=== PATIENT | female | born 1990 | race Caucasian/White ===

== ENCOUNTER 2018-10-19 00:12 | Inpatient (IN) | payer BC, OTHER ==
[2018-10-19] MEDS ORDERED: Misoprostol 50 MCG (1/2 of 100 MCG) Tab VAG ONE (01:24)
[2018-10-19] MEDS: Misoprostol 25 MCG (1/4 of 100 MCG) Tab VAG PRN ×2 (01:30→05:59)
[2018-10-19] MEDS ORDERED: Misoprostol 400 MCG (4 X 100 MCG TAB) RECTAL PRN (01:33)
[2018-10-19] MEDS ORDERED: Lidocaine 1% 30 ML SDV INJECT PRN (01:33)
[2018-10-19] MEDS ORDERED: Tranexamic Acid 1,000 MG in Sodium Chloride 0.9% 100 ML IV PRN (01:33)
[2018-10-19] MEDS ORDERED: Sodium Chloride 0.9% 10 ML Syringe FLUSH PRN ×2 (01:33→14:10)
[2018-10-19] MEDS ORDERED: Ondansetron 4 MG/2 ML SDV IV PRN (01:33)
[2018-10-19] MEDS ORDERED: Lactated Ringers 1,000 ML IV ONE (01:33)
[2018-10-19] MEDS ORDERED: Carboprost Tromethamine 250 MCG/1 ML Amp IM PRN (01:33)
[2018-10-19] MEDS ORDERED: Acetaminophen 325 MG Tab PO PRN ×2 (01:33→01:40)
[2018-10-19] MEDS ORDERED: Methylergonovine 0.2 MG/1 ML Amp IM PRN (01:33)
[2018-10-19] MEDS ORDERED: Oxytocin/Normal Saline 30 UNIT/500 ML BAG IV SCH ×2 (01:45)
[2018-10-19] MEDS ORDERED: Nalbuphine 10 MG/1 ML Vial IM PRN (01:48)
[2018-10-19] MEDS ORDERED: fentaNYL 100 MCG/2 ML SDV IVPUSH PRN (01:48)
[2018-10-19] MEDS: Lactated Ringers 1,000 ML IV SCH ×3 (06:51→17:29)
--- NOTE | 2018-10-19 10:57 | PCM.SN ---
- Free Text/Narrative Note: OB History and Physical 10/19/18 Chief Complaint: induction of labor HPI: Flor is a 28 year old G1 at 41w0d EGA who presents for induction of labor due to post dates. She has been doing well. She reports active movement. No complications this . ROS: Negative for headache, nausea, vomiting, diarrhea, fever, chills, abdominal pain, hematuria, dysuria, contractions, loss of fluid or bleeding per vagina. Medical Hx: none Surgical Hx: wisdom teeth extraction Family Hx: negative for bleeding or clotting disorder, genetic defects or mental disabilities. OB Hx: G1 Labs: OB Panel: Blood Type: A Positive Rubella: Immune HBSAg: Nonreactive GBS: Negative Gonorrhea/Chlamydia: Not Detected HIV: Nonreactive RPR: Nonreactive Physical Exam: Vitals: BP 109/75, HR 88, RR 18, O2 sat 98% on RA, Temp 99.1 Gen: No distress CV: Well-perfused, 2+ distal pulses, regular rate and rhythm, no audible murmurs Resp: Non-labored, symmetrical chest expansion, clear to auscultation Abd: gravid, soft, non tender Ext: Moves all extremities, no edema. SVE: 1/50/-1 FHT: 140, moderate variability, no decelerations appreciated, accelerations noted CTX: Q 3-5 mins, not feeling them Assessment: Flor is a 28 year old G1 at 41w0d EGA who presents for induction of labor due to post dates. Cat I Strip. Plan: - Will start induction with cytotec - Reviewed pain medication options with the patient - Routine cares - Will follow closely
[2018-10-19] MEDS ORDERED: Oxytocin/Normal Saline 60 UNIT/1,000 ML BAG ONE (14:09)
[2018-10-19] MEDS ORDERED: Lactated Ringers 1,000 ML IV SCH ×2 (14:15)
[2018-10-19] MEDS ORDERED: ceFAZolin 2 GM in Premix Bag 1 BAG IV ONE (14:15)
[2018-10-19] MEDS ORDERED: Citric Acid/Sodium Citrate Solution 30 ML Cup PO ONE (14:15)
--- NOTE | 2018-10-19 14:25 | PCM.SN ---
- Free Text/Narrative Note: History and Physical Update S: Patient was having a lot of back pain/labor with her contractions while on the Cytotec and made progress to 2.5cm dilated. Low dose pitocin was started to continue induction. FHT began having late decelerations so the pitocin was stopped, oxygen placed and IV fluids increased. She was dilated to 3cm. The decelerations resolved, however, the variability was minimal with occasional short periods of moderate. No accelerations were noted. A BPP was ordered was 4/ 10, 2 for movement and 2 for MAX. A discussion was had with the patient and it was decided to proceed with section to deliver the baby. O: FHT: 125, min-mod variability, no accelerations, no decelerations Contractions: 2-4 minutes BPP: 4/10 A: Flor is a 28 year old at 41w0d EGA who presented for induction of labor for post dates who is proceeding with a section due to 4/10 BPP that was performed for a nonreactive NST. P: - Proceed with primary section for non reassuring status - Routine cares - 2g Ancef - Dr. Gonzales called for in OR pediatric care if needed - Dr. Marcial notified to assist
[2018-10-19] MEDS ORDERED: Acetaminophen/oxyCODONE 325-5 MG Tab PO PRN ×2 (15:55)
[2018-10-19] MEDS ORDERED: diphenhydrAMINE 50 MG/ML SDV IVPUSH PRN (15:55)
[2018-10-19] MEDS ORDERED: Naloxone 2 MG/2 ML Syringe IVPUSH PRN (15:55)
[2018-10-19] MEDS ORDERED: Docusate Sodium 100 MG Cap PO PRN (15:55)
[2018-10-19] MEDS ORDERED: ePHEDrine 50 MG/ML SDV IVPUSH PRN (15:55)
--- NOTE | 2018-10-19 16:41 | PCM.PRNOTE ---
- Free Text/Narrative Note: OPERATIVE REPORT Date: 10/19/18 Procedure: Repeat low transverse section Start: 1503 Stop: 1538 Surgeon: Luz Yoon MD Dj Instructor: Dr. Marcial Pre-Operative Diagnosis: 28 year old at 41w0d EGA. Non reassuring status Post-Operative Diagnosis: same as above s/p section Anesthesia: Spinal Specimens: left tubal cyst Complications: none apparent Drains: sanders catheter with clear urine output EBL: 500 mL IVF: see [employer] documentation Findings: intrauterine , left tubal cyst, baby girl with apgars 3 and 9. Indication for Procedure: non reassuring status Procedure in Detail: The patient was brought to the operating room where spinal anesthesia was administered. She was then prepped and draped in routine fashion in dorsal supine position with a leftward tilt. Sanders catheter and SCDs were placed. Incision was made through the skin and carried sharply to the level of the fascia, which was then incised transversely in the midline. This incision was then carried bilaterally with scissors. The fascia was tented up with Steph clamps and dissected off the underlying rectus musculature with sharp and blunt technique in both the superior and inferior direction. The rectus musculature was then in the midline and the peritoneum was entered in the midline with care being taken to avoid any underlying bowel and/or bladder tissue. The operative opening was then extended with manual traction. The peritoneal reflection was identified and the bladder was dissected off the lower uterine segment with sharp and blunt technique. The lower uterine segment was incised transversely in the midline to the level of the amniotic sac then bluntly widened. Copious clear fluid was noted. The infants head was elevated out of the maternal pelvis and was delivered through the incision. The remainder of the was then delivered. Bulb suctioning was performed on the operative field. The cord was clamped and cut in standard fashion and then the was handed over to the awaiting nursery staff. The placenta was delivered via gentle traction on umbilical cord with concomitant uterine massage followed by manual extraction. The uterus was cleared of remaining products of conception with a dry lap. The uterine incision was closed with a interlocking layer of 0-Vicryl followed by an imbricating layer of the same material. The incision was inspected and complete hemostasis was achieved. The abdomen was then cleared of clot and debris. Hemostasis of all incised surfaces was confirmed. A left tubal cyst was noted during the procedure and removed by Dr. Marcial and sent for pathology. A cross stitch was placed in the peritoneum. The fascia was then closed with 0- PDS. It was ensured that no underlying abdominal contents were closed in the incision. The skin closed with 4-0 Monocryl on a Jarrell needle. The patient did receive Ancef preoperatively. Sponge and instrument counts were reported as correct times two. Patient tolerated procedure well and was taken to PACU in stable condition.
[2018-10-19] MEDS ORDERED: Promethazine 25 MG/ML SDV IM PRN (17:59)
[2018-10-19] MEDS: Simethicone 80 MG Tab.Chew PO SCH ×2 (18:51→22:03)
[2018-10-19] MEDS: Ketorolac 30 MG/ML SDV IVPUSH SCH (22:03)
[2018-10-20] MEDS: Lactated Ringers 1,000 ML IV SCH (01:48)
[2018-10-20] MEDS: Ketorolac 30 MG/ML SDV IVPUSH SCH ×2 (03:59→09:45)
[2018-10-20] MEDS ORDERED: Prenatal Multivitamin with Calcium/Folic Acid/Iron Tab PO SCH (09:00)
[2018-10-20] MEDS: Simethicone 80 MG Tab.Chew PO SCH ×2 (09:43→13:06)
--- NOTE | 2018-10-20 10:40 | PCM.PNPP ---
- General Info Date of Service: 10/20/18 (POD # 1 S/P Primary LTC/S) Functional Status: Reports: Pain Controlled, Tolerating Diet, Ambulating, Urinating - Review of Systems General: Reports: No Symptoms HEENT: Reports: No Symptoms Pulmonary: Reports: No Symptoms Cardiovascular: Reports: No Symptoms Gastrointestinal: Reports: No Symptoms Genitourinary: Reports: No Symptoms Musculoskeletal: Reports: No Symptoms Skin: Reports: No Symptoms Neurological: Reports: No Symptoms Psychiatric: Reports: No Symptoms - General Info Date of Service: 10/20/18 (POD/PPD # 1 S/P LTC/S) - Patient Data Vital Signs - Most Recent: Last Vital Signs Temp 97.8 F 10/20/18 08:00 Pulse 65 10/20/18 08:00 Resp 16 10/20/18 08:00 BP 105/63 10/20/18 08:00 Pulse Ox 98 10/20/18 08:00 Weight - Most Recent: 157 lb I&O - Last 24 Hours: Intake & Output 10/19/18 10/20/18 10/20/18 22:59 06:59 14:59 Intake Total 4680 Output Total 1800 950 Balance 2880 -950 Lab Results - Last 24 Hours: Laboratory Results - last 24 hr 10/19/18 10/20/18 Range/Units 00:45 06:00 WBC 14.5 H (5.0-10.0) 10^3/uL RBC 3.63 L (4.2-5.4) 10^6/uL Hgb 11.3 L (12.0-16.0) g/dL Hct 34.2 L (37.0-47.0) % MCV 94.2 (80-100) fL MCH 31.1 (27.0-34.0) pg MCHC 33.0 (33.0-35.0) g/dL Plt Count 224 (150-450) 10^3/uL Blood Type A POSITIVE Gel Antibody Screen Negative Med Orders - Current: Current Medications Acetaminophen (Tylenol) 650 mg PO Q4H PRN PRN Reason: Pain (Mild 1-3) and fever Carboprost Tromethamine (Hemabate Ds) 250 mcg IM ASDIRECTED PRN PRN Reason: HEMORRHAGE Diphenhydramine HCl (Benadryl) 25 mg IVPUSH Q6HR PRN PRN Reason: Itching or Nausea Docusate Sodium (Colace) 100 mg PO Q12HR PRN PRN Reason: Constipation Last Admin: 10/20/18 09:44 Dose: 100 mg Ephedrine Sulfate (Ephedrine Sulfate) 5 mg IVPUSH SEECOMMENT PRN PRN Reason: Other Oxytocin/Sodium Chloride (Pitocin In Ns 30 Unit/500 Ml) 30 unit in 500 mls @ 2 mls/hr IV TITRATE [facility]; Protocol Last Titration: 10/19/18 17:45 Dose: 0 munits/min, 0 mls/hr Tranexamic Acid 1,000 mg/ (Sodium Chloride) 110 mls @ 660 mls/hr IV ONETIME PRN PRN Reason: Bleeding Lactated Ringer's (Ringers, Lactated) 1,000 mls @ 125 mls/hr IV ASDIRECTED RAMIREZ Last Admin: 10/20/18 01:48 Dose: 125 mls/hr Ibuprofen (Motrin) 800 mg PO Q8H PRN PRN Reason: mild pain or fever Methylergonovine Maleate (Methergine) 0.2 mg IM ASDIRECTED PRN PRN Reason: Hemorrhage Misoprostol (Cytotec) 800 mcg RECTAL ASDIRECTED PRN PRN Reason: Hemorrhage Naloxone HCl (Narcan) 0.1 mg IVPUSH SEECOMMENT PRN PRN Reason: Respiratory Depression Ondansetron HCl (Zofran) 4 mg IV Q4H PRN PRN Reason: Nausea/Vomiting Oxycodone/Acetaminophen (Percocet 325-5 Mg) 1 tab PO Q4HR PRN PRN Reason: Pain (moderate 4-6) Oxycodone/Acetaminophen (Percocet 325-5 Mg) 2 tab PO Q4HR PRN PRN Reason: Pain (severe 7-10) Prenat Multivit/[place]/Iron/Folic Ac ( Plus Iron) 1 each PO DAILY [facility] Last Admin: 10/20/18 09:44 Dose: 1 each Promethazine HCl (Phenergan) 25 mg IM ONETIME PRN PRN Reason: Vomiting Last Admin: 10/19/18 18:15 Dose: 25 mg Simethicone (Simethicone) 160 mg PO QID [facility] Last Admin: 10/20/18 09:43 Dose: 160 mg Sodium Chloride (Saline Flush) 10 ml FLUSH ASDIRECTED PRN PRN Reason: Keep Vein Open Discontinued Medications Acetaminophen (Tylenol) 650 mg PO Q4H PRN PRN Reason: Pain/Fever Citric Acid/Sodium Citrate (Bicitra Solution) 30 ml PO ONETIME ONE Stop: 10/19/18 14:16 Last Admin: 10/19/18 14:35 Dose: 30 ml Fentanyl (Sublimaze) 50 mcg IVPUSH Q6H PRN PRN Reason: Pain Lactated Ringer's (Ringers, Lactated) 1,000 mls @ 999 mls/hr IV .BOLUS ONE Stop: 10/19/18 02:33 Last Admin: 10/19/18 16:03 Dose: Not Given Lactated Ringer's (Ringers, Lactated) 1,000 mls @ 125 mls/hr IV ASDIRECTED RAMIREZ Last Admin: 10/19/18 12:48 Dose: 125 mls/hr Oxytocin/Sodium Chloride (Pitocin In Ns 30 Unit/500 Ml) 30 unit in 500 mls @ 2 mls/hr IV TITRATE RAMIREZ; Protocol Last Titration: 10/19/18 11:18 Dose: 0 munits/min, 0 mls/hr Oxytocin/Sodium Chloride (Pitocin In Ns 30 Unit/500 Ml) Confirm Administered Dose 60 unit in 1,000 mls @ as directed .ROUTE .STK-MED ONE Stop: 10/19/18 14:10 Cefazolin Sodium/Dextrose 2 gm (/ Premix) 50 mls @ 100 mls/hr IV ONETIME ONE Stop: 10/19/18 14:44 Last Admin: 10/19/18 14:17 Dose: 100 mls/hr Lactated Ringer's (Ringers, Lactated) 1,000 mls @ 125 mls/hr IV ASDIRECTED RAMIREZ Lactated Ringer's (Ringers, Lactated) 1,000 mls @ 500 mls/hr IV .BOLUS RAMIREZ Ketorolac Tromethamine (Toradol) 15 mg IVPUSH Q6H RAMIREZ Stop: 10/20/18 10:01 Last Admin: 10/20/18 09:45 Dose: 15 mg Lidocaine HCl (Xylocaine-Mpf 1%) 30 ml INJECT ASDIRECTED PRN PRN Reason: Perineal Repair Misoprostol (Cytotec) 25 mcg VAG ONETIME ONE Stop: 10/19/18 01:25 Last Admin: 10/19/18 03:56 Dose: Not Given Misoprostol (Cytotec) 25 mcg VAG Q4H PRN PRN Reason: cervical ripening Last Admin: 10/19/18 05:59 Dose: 25 mcg Nalbuphine HCl (Nubain) 20 mg IM Q6H PRN PRN Reason: Pain Last Admin: 10/19/18 11:07 Dose: 20 mg Sodium Chloride (Saline Flush) 10 ml FLUSH ASDIRECTED PRN PRN Reason: Keep Vein Open - Infant Interaction Disposition, : Infant transferred to [facility] [place] Support Person: - Recovery Exam Fundal Tone: Firm Fundal Level: 1 Fingerbreadths Below Umbilicus Fundal Placement: Midline Lochia Amount: Scant Lochia Color: Rubra/Red Perineum Description: Intact, Minimal Bruising/Swelling Episiotomy/Laceration: None Bladder Status: Indwelling Catheter in Place Urinary Elimination: Voided - Exam General: Alert, Oriented, Cooperative, No Acute Distress HEENT: Pupils Equal, Pupils Reactive, EOMI, Mucous Membr. Moist/[place] Neck: Supple Lungs: Clear to Auscultation, Normal Respiratory Effort Cardiovascular: Regular Rate, Regular Rhythm, No Murmurs GI/Abdominal Exam: Normal Bowel Sounds, Soft, Non-Tender, No Distention Extremities: Normal Inspection, Normal Range of Motion, Non-Tender, No Pedal Edema, Normal Capillary Refill Skin: Warm, Dry, Intact Wound/Incisions: Healing Well Neurological: No New Focal Deficit Psy/Mental Status: Alert, Normal Affect, Normal Mood - Problem List Review Problem List Initiated/Reviewed/Updated: Yes - Assessment Assessment:: POD/PPD # 1 S/P Primary LTC/S Doing well - Plan Plan:: Discharge to home Follow-up with Dr. Yoon. Ibuprofen 800 mg 1 tab q 6-8 hours po prn pain Percocet 5/325 mg 1 Tablet q 6-8 hours po prn pain All questions answered.
[2018-10-20] MEDS ORDERED: Oxytocin/Normal Saline 30 UNIT/500 ML BAG IV ONE (13:59)
[2018-10-20] MEDS ORDERED: Morphine PF 1 MG/ML Amp ONE (13:59)
[2018-10-20] MEDS ORDERED: Ondansetron 4 MG/2 ML SDV IV ONE (13:59)
[2018-10-20] MEDS ORDERED: Lactated Ringers 1,000 ML IV ONE (13:59)
[2018-10-20] MEDS ORDERED: Dexamethasone 4 MG/ML SDV IV ONE (13:59)
[2018-10-20] MEDS ORDERED: Ketorolac 30 MG/ML SDV IVPUSH ONE (13:59)
[2018-10-20] MEDS ORDERED: Ibuprofen 800 MG Tab PO PRN (18:00)
--- NOTE | 2018-10-22 08:54 | DISCH ---
INDICATION FOR ADMISSION: Ms. Muñoz is a 28-year-old, 1, para 0, female, who reported to Labor and Delivery at 41 weeks' gestation for induction of labor. She had a nice reactive strip on admission, and she was 1 cm dilated, 50% effaced, -1 station. Cytotec cervical ripening was accomplished. When she started dilating, Pitocin induction was started and artificial rupture of membranes occurred. She tolerated her labor quite well. She did get intrathecal anesthesia. She started having nonreassuring heart rate pattern with variable and late decelerations. She was only 2.5 cm dilated and this continued. She had a biophysical profile that was 4/8 with a decreased variability, there was a total of 4/10, so a primary section was then called. She went to the operating room and the procedure did quite well. She had spinal anesthesia. She had delivery of a viable female , weighing 7 pounds 4 ounces, 19-1/2 inches long with score of 3 at 1 minute, 9 at 5 minutes. She went from the operating room to recovery and then to the OB floor. She tolerated the rest of her hospital stay quite well. She was afebrile. Vital signs were stable. She tolerated her diet well and ambulated quite well. No complications occurred throughout her hospital stay. Her baby girl was transferred to [facility] in [place] because of respiratory issues, so the patient wanted to be discharged to home on postop day #1. She denied any nausea, vomiting, or diarrhea. No fever or chills. Her incision did well with no erythema or drainage noted. She wanted to go down to [place] to be with her , so she was discharged to home on postop day #1. LABORATORY AND DIAGNOSTIC STUDIES: 10/19/2018: WBC 11.0, hemoglobin 12.5, hematocrit 37.0, platelet count 280,000. 10/20/2018: WBC 14.5, hemoglobin 11.3, hematocrit 34.2, platelet count 224,000. Blood type A positive, antibody screen negative. DISCHARGE INSTRUCTIONS: 1. Discharge to home. 2. Follow up with Dr. Yoon for wound check and recheck in the office. 3. No douching, tampons, intercourse for 6 weeks. 4. Discharge instructions including activity, followup, medications, diet, and wound care were discussed with the patient. She understands these and is willing to comply with these. 5. Percocet 5/325 one tablet every 6 to 8 hours p.r.n. for pain. 6. Ibuprofen 800 mg 1 tablet every 6 to 8 hours p.r.n. for pain. 7. vitamins daily. DISCHARGE DIAGNOSES: 1. 41-week intrauterine , post dates. 2. Cytotec cervical ripening. 3. Pitocin induction. 4. Artificial rupture of membranes. 5. intolerance to labor with recurrent variable and late decelerations. 6. Poor testing with a biophysical profile of 08/15. 7. Primary low transverse section via Pfannenstiel skin incision. 8. Delivery of a viable female weighing 7 pounds 4 ounces, 19-1/2 inches long with score of 3 at 1 minute and 9 at 5 minutes. 9. Spinal anesthesia with Duramorph. [facility] /[id number]
== END 2018-10-20 14:00 | disposition home or self-care (01) | DRG 540 ==
LOC: DL.OBCHECK 00:12 → DL.OB 00:13 → OBSVTOIN 15:07 → DL.OB 15:07
PROVIDERS: ADMIT Family Medicine; ATTEND Family Medicine
PROC: 10D00Z1 Extraction of Products of Conception, Low, Open Approach (ICD-10-PCS; principal; 2018-10-19)
DX: O48.0 Post-term pregnancy (principal); Z3A.41 41 weeks gestation of pregnancy; Z37.0 Single live birth; O76 Abnormality in fetal heart rate and rhythm complicating labor and delivery
CPT/HCPCS: 36415; 76819; 85027; 86850; 86900; 86901; A4217; A9270-GY; J0690; J1100; J1885; J2274; J2300; J2405; J2550; J2590; J7120